=== PATIENT | male | born 1955 | race Caucasian/White ===

== ENCOUNTER 2017-06-14 06:22 | Day surgery (SDC) | payer OTHER ==
[~2017-06-14] VITALS: Ht 182.9 cm; Wt 100.0 kg
[~2017-06-14 06:22] MED LIST: COZAAR50 M1 PO; FLEXERIL10 MG PO; LIPITOR40 M1 PO; NO MEDICATIONS; NORCO 5/325 TAB1 TAB PO; TUMS200 MG PO
[2017-06-15] MEDS ORDERED: HYDROCODON-ACE1 EA16 (08:41)
== END 2017-06-14 12:45 ==
LOC: SHSC 06:22 → SRG 06:22
PROC: 0HB1XZZ Excision of Face Skin, External Approach (ICD-10-PCS; principal; 2017-06-14)
PROC: 0HB0XZZ Excision of Scalp Skin, External Approach (ICD-10-PCS; 2017-06-14)
DX: C44.41 Basal cell carcinoma of skin of scalp and neck (principal); C44.319 Basal cell carcinoma of skin of other parts of face; I10 Essential (primary) hypertension; E78.00 Pure hypercholesterolemia, unspecified; K21.9 Gastro-esophageal reflux disease without esophagitis; Z87.891 Personal history of nicotine dependence; Z98.890 Other specified postprocedural states